=== PATIENT | male | born 1970 | race Caucasian/White ===

== ENCOUNTER 2017-02-16 17:50 | Emergency (ER) | payer BC ==
--- NOTE | ~2017-02-16 | CT4 ---
[facility] A Service of [facility] RADIOLOGY TEXT RESULTS PATIENT: YAZ DEMPSEY LOCATION: SED : 68 UNIT #: [id number] AGE: [address]: Vinicius Doss SEX: M ORDER DR: [id number] [address] [address] [id number] E MR#: [id number] Acc #: [id number] NAME: YAZ DEMPSEY : 1970 SEX: M STUDY DATE/TIME: 02/16/2017 18:46 UNIT: SED ROOM: STUDY DESCRIPTION: CT Abd and Pelv Wo Cont Attending Physician: Vinicius Doss P.A.-C. Ordering Physician: Vinicius Doss P.A.-C. Primary Care Physician: Kaveh Solares M.D. MEDICAL IMAGING REPORT This report is preliminary unless electronic signature is present. EXAM CT abdomen and pelvis without contrast HISTORY 46-year-old male complains of right-sided flank pain since Thursday, 2 days ago, hematuria. Concern for kidney stone. History of kidney stones. TECHNIQUE Axial images performed through the abdomen and pelvis without contrast. Multiplanar reconstructed images reviewed at a workstation. This CT exam was performed with one or more of the following radiation dose reduction techniques: automatic exposure control, adjustment of mA and/or kV according to patient size, and iterative reconstruction. FINDINGS ABDOMEN: There is approximately 9.0 mm proximal right ureteral stone with mild right-sided hydronephrosis. Multiple bilateral renal cysts are noted. There is a small nonobstructing stone on the left. Subtle hyperdensity seen in the right kidney may represent a hyperdense renal cyst but cannot be fully characterized on this examination. This measures 1.1 cm in greatest dimension. There is also at least one nonobstructing stone on the right as well. Liver, spleen and gallbladder are unremarkable. The pancreas and adrenal glands appear normal. The visualized GI tract unremarkable. PELVIS: Bladder unremarkable. The prostate appears normal. Osseous structures show degenerative changes lower thoracic and upper lumbar spine. IMPRESSION 1. 9.0 mm right ureteral stone with mild right-sided hydronephrosis and hydroureter. [facility]. [facility] A Service of [facility] RADIOLOGY TEXT RESULTS PATIENT: YAZ DEMPSEY LOCATION: [facility] [place] : [birth year] UNIT #: [id number] AGE: [address]: Vinicius Doss PAC SEX: M ORDER DR: 2. Small nonobstructing intrarenal stones bilaterally. 3. Multiple low-attenuation lesions in both kidneys compatible with cysts however there is a 11.0 mm hyperdense lesion within the right kidney may represent a hyperdense renal cyst but cannot be fully characterized on this unenhanced study. Further evaluation and followup is recommended. Comparison with any outside studies may also be of benefit if available. 1. Dictated by... Alanna Ferrell M.D. THIS IS AN ELECTRONICALLY VERIFIED REPORT Alanna Ferrell M.D. at 02/17/2017 3:09 PM SARAH/ghada TD: 02/17/2017 09:28 JOB #: [id number] MEDICAL IMAGING REPORT Page 1 of 1
[~2017-02-16 17:50] MED LIST: ACETAMINOPHEN PO; AMBIEN PO; AUGMENTIN PO; BP MED; CALAN SR PO; CLEOCIN PO; COZAAR PO; DICLOFENAC PO; FLEXERIL10 MG PO; GLUCOSAMINE PO; LISINOPRIL PO; LYRICA PO; PERCOCET PO; PHENERGAN VC W120 M1 PO; SINGULAIR PO; SUDAFED PO; VOLTAREN75 MG PO; ZITHROMAX PO; ZOLOFT PO; ZYRTEC PO; [UNRECOGNIZED DRUG - OTHER]
[2017-02-16 18:36] LABS: URINE SOURCE CLEAN CATCH
[2017-02-16 18:39] LABS: URINE APPEARANCE CLEAR; URINE BILIRUBIN NEG (NEG); URINE BLOOD 3+ (NEG); URINE COLOR YELLOW; URINE GLUCOSE NEG (NORM); URINE KETONE NEG (NEG); URINE LEUKOCYTE ESTERASE NEG (NEG); URINE NITRATE NEG (NEG); URINE PH 5.5 (5-8); URINE PROTEIN NEG (NEG); URINE SPECIFIC GRAVITY >=1.030 (1.003-1.035); URINE UROBILINOGEN 0.2 MG/DL (NORM)
[2017-02-16 18:40] LABS: MICRO INDICATED? YES
[2017-02-16 18:43] LABS: CULTURE INDICATED? NO; URINE BACTERIA NEG (NEG); URINE RBC 50-100 /[HPF] (0-2); URINE SQUAMOUS EPITHELIAL CELL FEW /[HPF]; URINE WBC 0-2 /[HPF] (0-5)
[2017-02-16 18:47] LABS: BASOPHIL% 0.5 % (0-2.5); EOSINOPHIL# 0.1 X10e3 (0-0.7); EOSINOPHIL% 1.6 % (0.0-7.0); HEMATOCRIT 48.8 % (38.0-50.0); HEMOGLOBIN 16.7 gm/dL (13.0-16.0); LYMPHOCYTE# 2.3 X10e3 (1.0-3.5); LYMPHOCYTE% 27.1 % (17.0-45.0); MEAN CELL VOLUME 90.7 FL (83-96); MEAN CORPUSCULAR HGB CONC 34.2 g/dL (30-36); MEAN PLATELET VOLUME 8.7 FL (6.5-11.5); MONOCYTE# 0.6 X10e3 (0-1.0); MONOCYTE% 7.4 % (3.0-12.0); NEUTROPHIL# 5.3 X10e3 (1.5-7.1); NEUTROPHIL% 63.4 % (40-75); PLATELET COUNT 265 X10e3 (140-420); RED BLOOD COUNT 5.38 X10e (3.90-5.60); RED CELL DISTRIBUTION WIDTH 13.4 % (11.0-15.5); WHITE BLOOD COUNT 8.4 X10e3 (4.0-10.5)
[2017-02-16 18:49] LABS: AMPHETAMINE NEG (NEG); BARBITURATES NEG (NEG); BENZODIAZEPINES NEG (NEG); COCAINE NEG (NEG); MARIJUANA NEG (NEG); OPIATES POS (NEG); TRICYCLIC ANTIDEPRESSANTS NEG (NEG); U METHADONE NEG (NEG)
[2017-02-16 18:49] LABS: DIFF IND NO
[2017-02-16 18:59] LABS: ALBUMIN SERUM 4.5 g/dL (3.5-5.0); BILIRUBIN, DIRECT 0.1 mg/dL (0.0-0.2); BILIRUBIN,INDIRECT 0.6 mg/dL (0.0-0.9); BILIRUBIN,TOTAL 0.7 mg/dL (0.2-2.0); BUN/CREATININE RATIO 16.66; CALCIUM SERUM 9.1 mg/dL (8.4-10.2); CREATININE SERUM 1.2 mg/dL (0.6-1.4); GLOM FILT RATE Estimated 71.6 mL/min (>60); POTASSIUM 3.7 mmol/L (3.5-5.1); PROTEIN TOTAL SERUM 7.8 g/dL (6.0-8.3)
== END 2017-02-16 20:40 ==
LOC: SED 17:50
PROVIDERS: Physician Assistant
DX: N13.2 Hydronephrosis with renal and ureteral calculous obstruction (principal); I10 Essential (primary) hypertension; E78.5 Hyperlipidemia, unspecified; Z88.0 Allergy status to penicillin; Z88.1 Allergy status to other antibiotic agents; Z79.899 Other long term (current) drug therapy
CPT/HCPCS: 36415; 74176; 80048; 80076; 80307; 81003; 83690; 85025; 96361; 96374; 96375; 99285; J1170; J1885; J2405